=== PATIENT | female | born 1985 | race Caucasian/White ===

== ENCOUNTER → 2016-10-22 | Outpatient (CLI) | payer OTHER | END | disposition home or self-care (01) | LOC: LAB 11:46 | PROVIDERS: ATTEND Obstetrics & Gynecology Obstetrics | DX: O14.90 Unspecified pre-eclampsia, unspecified trimester (principal) ==

== ENCOUNTER → 2016-10-23 | Outpatient (CLI) | payer OTHER ==
[2016-10-23 18:59] LABS: BASOPHILS # (AUTO) 0.1 X10^3/uL (0.0-0.1); BASOPHILS % (AUTO) 0.6 % (0.2-1.0); EOSINOPHILS % (AUTO) 0.3 % (0.9-2.9); HEMATOCRIT 32.6 % (36.0-47.0); LYMPHOCYTES # (AUTO) 2.8 X10^3/uL (1.3-2.9); LYMPHOCYTES % (AUTO) 20.9 % (21.0-51.0); MEAN CORPUSCULAR HEMOGLOBIN 29.6 pg (27.0-34.0); MEAN CORPUSCULAR HGB CONC 33.8 g/dL (33.0-35.0); MEAN CORPUSCULAR VOLUME 87.5 fL (80.0-100.0); MEAN PLATELET VOLUME 9.1 fL (7.4-11.0); MONOCYTES # (AUTO) 0.8 x10^3/uL (0.3-0.8); MONOCYTES % (AUTO) 6.2 % (0.0-13.0); NEUTROPHILS # (AUTO) 9.7 x10^3/uL (2.2-4.8); PLATELET COUNT 322 X10^3/uL (150.0-450.0); RED BLOOD COUNT 3.73 X10^6/uL (3.5-5.4); RED CELL DISTRIBUTION WIDTH 12.6 % (11.6-16.5); WHITE BLOOD COUNT 13.4 X10^3/uL (3.6-10.0)
[2016-10-23 19:08] LABS: ALANINE AMINOTRANSFERASE 50 Units/L (12-78); ALBUMIN 2.7 g/dL (3.4-5.0); ALKALINE PHOSPHATASE 209 Units/L (46-116); ASPARTATE AMINO TRANSFERASE 61 Units/L (15-37); BLOOD UREA NITROGEN 6 mg/dL (7-18); CALCIUM 8.7 mg/dL (8.5-10.1); CHLORIDE 105 mmol/L (98-107); COR CA(FOR HYPOALB) 9.7 mg/dL (8.5-10.1); CREATININE 0.64 mg/dL (0.55-1.02); GLUCOSE 70 mg/dL (65-99); SODIUM 139 mmol/L (136-145); TOTAL PROTEIN 7.1 g/dL (6.4-8.2); URIC ACID 4.7 mg/dL (2.6-6.0); eGFR BLACK RACES > 60 (>60); eGFR NON BLACK RACES > 60 (>60)
[2016-10-23 19:44] LABS: CREATININE 24 HOUR,URINE 1.21 g/24 hr (0.67-1.59)
== END | disposition home or self-care (01) ==
LOC: LAB 18:13
PROVIDERS: ATTEND Obstetrics & Gynecology Obstetrics
DX: O14.90 Unspecified pre-eclampsia, unspecified trimester (principal)
CPT/HCPCS: 36415; 80053; 81050; 82570; 84157; 84550; 85025; 85610; 85730

== ENCOUNTER 2016-11-06 06:19 | Inpatient (IN) | payer OTHER ==
[2016-11-06] MEDS ORDERED: NUBAIN INJ 200 MG VIAL MULTIDOSE IVP PRN (06:39)
[2016-11-06] MEDS ORDERED: PHENERGAN INJ 25 MG IV PRN ×2 (06:39→19:48)
[2016-11-06] MEDS ORDERED: PITOCIN 10 UNITS in D5 LR 1000 ML 1,000 ML IV PRN (06:39)
[2016-11-06] MEDS ORDERED: MORPHINE SULFATE INJ 2 MG IVP PRN (06:39)
[2016-11-06] MEDS ORDERED: DILAUDID INJ IVP PRN (06:39)
[2016-11-06] MEDS ORDERED: REGLAN INJ 10 MG VIAL IVP PRN (06:39)
[2016-11-06] MEDS ORDERED: LR 1000 ML IV 1,000 ML IV ONE ×2 (06:50→10:00)
[2016-11-06] MEDS ORDERED: D5LR 1000ML W PITOCIN 10 U/L 1,000 ML IV ONE (06:50)
[2016-11-06] MEDS ORDERED: D5 1/2 NS 1000ML W PITOCIN 20 U/L 1,000 ML IV ONE (06:51)
[2016-11-06] MEDS: D5 1/2 NS 1000 ML 1,000 ML IV SCH ×2 (07:00→19:50)
[2016-11-06 07:23] LABS: BASOPHILS # (AUTO) 0.1 X10^3/uL (0.0-0.1); BASOPHILS % (AUTO) 0.5 % (0.2-1.0); EOSINOPHILS # (AUTO) 0.1 x10^3/uL (0.0-0.2); EOSINOPHILS % (AUTO) 0.8 % (0.9-2.9); HEMOGLOBIN 11.1 g/dL (12.0-16.0); LYMPHOCYTES # (AUTO) 3.5 X10^3/uL (1.3-2.9); LYMPHOCYTES % (AUTO) 24.5 % (21.0-51.0); MEAN CORPUSCULAR HEMOGLOBIN 29.5 pg (27.0-34.0); MEAN CORPUSCULAR HGB CONC 33.5 g/dL (33.0-35.0); MEAN CORPUSCULAR VOLUME 87.9 fL (80.0-100.0); MEAN PLATELET VOLUME 9.2 fL (7.4-11.0); MONOCYTES # (AUTO) 1.1 x10^3/uL (0.3-0.8); MONOCYTES % (AUTO) 7.3 % (0.0-13.0); NEUTROPHILS # (AUTO) 9.6 x10^3/uL (2.2-4.8); NEUTROPHILS % (AUTO) 66.9 % (42.0-75.0); PLATELET COUNT 313 X10^3/uL (150.0-450.0); RED BLOOD COUNT 3.75 X10^6/uL (3.5-5.4); RED CELL DISTRIBUTION WIDTH 12.7 % (11.6-16.5); WHITE BLOOD COUNT 14.4 X10^3/uL (3.6-10.0)
[2016-11-06 07:34] LABS: BILIRUBIN,URINE NEGATIVE (NEGATIVE); BLOOD/HEMOGLOBIN,URINE NEGATIVE (NEGATIVE); GLUCOSE, URINE NEGATIVE (NEGATIVE); KETONES,URINE NEGATIVE (NEGATIVE); LEUKOCYTE ESTERASE ,URINE NEGATIVE (NEGATIVE); NITRITES,URINE NEGATIVE (NEGATIVE); PH,URINE 6.5 (5.0 - 8.0); PROTEIN,URINE 1+ (NEGATIVE); UROBILINOGEN,URINE NORMAL (NORMAL)
[2016-11-06 07:35] LABS: BLOOD UREA NITROGEN 8 mg/dL (7-18); CALCIUM 8.5 mg/dL (8.5-10.1); CARBON DIOXIDE 20.7 mmol/L (21-32); CHLORIDE 107 mmol/L (98-107); CREATININE 0.88 mg/dL (0.55-1.02); GLUCOSE 89 mg/dL (65-99); SODIUM 139 mmol/L (136-145); eGFR BLACK RACES > 60 (>60); eGFR NON BLACK RACES > 60 (>60)
[2016-11-06 08:08] LABS: APPEARANCE,URINE SLIGHTLY HAZY (CLEAR); COLOR,URINE YELLOW (YELLOW)
[2016-11-06] MEDS: PITOCIN IVP ONE ×2 (08:22→19:36)
[2016-11-06] MEDS ORDERED: PHENERGAN INJ 25 MG ONE (09:05)
[2016-11-06] MEDS ORDERED: FENTANYL INJ 100 mcg EPI ONE (10:00)
[2016-11-06] MEDS ORDERED: NAROPIN EPIDURAL 0.2% 60 ML with FENTANYL INJ 100 mcg 90 MCG IVP SCH ×2 (10:00)
[2016-11-06] MEDS ORDERED: FENTANYL INJ 100 mcg ONE (10:01)
[2016-11-06] MEDS ORDERED: NAROPIN EPIDURAL 0.2% + FENTANYL 90MCG 60 ML EPI ONE ×2 (10:02→14:32)
[2016-11-06] MEDS ORDERED: MOTRIN TAB 800 MG PO PRN (19:48)
[2016-11-06] MEDS: D5 1/2 NS 1000 ML 1,000 ML with PITOCIN 20 UNITS IV SCH ×2 (19:50)
[2016-11-06] MEDS ORDERED: DERMOPLAST SPRAY TOP PRN (19:52)
[2016-11-06] MEDS ORDERED: AMBIEN PO PRN (19:52)
[2016-11-06] MEDS ORDERED: MILK OF MAGNESIA PO PRN (19:52)
[2016-11-06] MEDS ORDERED: ADACEL TDaP IM ONE (19:52)
[2016-11-06] MEDS: ZANTAC PO SCH (22:05)
[2016-11-06] MEDS: MOTRIN TAB 800 MG PO PRN (23:45)
[2016-11-07] MEDS: D5 1/2 NS 1000 ML 1,000 ML with PITOCIN 20 UNITS IV SCH ×4 (04:13→20:47)
[2016-11-07 06:10] LABS: HEMATOCRIT 29.1 % (36.0-47.0); HEMOGLOBIN 9.8 g/dL (12.0-16.0)
[2016-11-07] MEDS: PRENATAL PLUS PO SCH (10:27)
[2016-11-07] MEDS: ZANTAC PO SCH ×2 (10:28→20:48)
[2016-11-07] MEDS ORDERED: SNACK - Diabetic Appropriate PO SCH (20:00)
[2016-11-07] MEDS: MOTRIN TAB 800 MG PO PRN (20:47)
[2016-11-08] MEDS: D5 1/2 NS 1000 ML 1,000 ML with PITOCIN 20 UNITS IV SCH ×2 (06:09)
[2016-11-08 08:55] VITALS: BP 147/71
[2016-11-08] MEDS: PRENATAL PLUS PO SCH (09:24)
[2016-11-08] MEDS: ZANTAC PO SCH (09:24)
== END 2016-11-08 12:45 | disposition home or self-care (01) | DRG 775 ==
LOC: LD 06:19 → MED/SURG 20:30
PROVIDERS: ADMIT Obstetrics & Gynecology Obstetrics; ATTEND Obstetrics & Gynecology Obstetrics
PROC: 10E0XZZ Delivery of Products of Conception, External Approach (ICD-10-PCS; principal; 2016-11-06)
PROC: 10907ZC Drainage of Amniotic Fluid, Therapeutic from Products of Conception, Via Natural or Artificial Opening (ICD-10-PCS; 2016-11-06)
PROC: 3E033VJ Introduction of Other Hormone into Peripheral Vein, Percutaneous Approach (ICD-10-PCS; 2016-11-06)
PROC: 00HU33Z Insertion of Infusion Device into Spinal Canal, Percutaneous Approach (ICD-10-PCS; 2016-11-06)
PROC: 0KQM0ZZ Repair Perineum Muscle, Open Approach (ICD-10-PCS; 2016-11-06)
DX: O71.82 Other specified trauma to perineum and vulva (principal); Z37.0 Single live birth; Z3A.39 39 weeks gestation of pregnancy
CPT/HCPCS: 09167; 36415; 59409; 80048; 81003; 85014; 85018; 85025; 86592; 86850; 86900; 86901; A4216; A4222; S0197; J2550; J2590; J3010; J7042; J7120

== ENCOUNTER 2023-04-23 06:13 | Inpatient (IN) ==
[2023-04-23] MEDS ORDERED: ANCEF VIAL 1 GRAM IVP ONE ×2 (06:40→07:20)
[2023-04-23] MEDS ORDERED: LR 1,000 ML IV 1,000 ML IV ONE ×3 (06:43→07:00)
[2023-04-23] MEDS ORDERED: NS 100 ML IV 100 ML ONE (06:49)
[2023-04-23] MEDS ORDERED: ANCEF VIAL 1 GRAM ONE (06:49)
[2023-04-23] MEDS ORDERED: D5 1/2 NS 1,000 mL + PITOCIN 20 UNITS/L IV 20 UNITS/1,000 ML BAG IV ONE (07:00)
[2023-04-23] MEDS ORDERED: PITOCIN ONE (07:02)
[2023-04-23] MEDS ORDERED: MARCAINE SPINAL ONE (07:02)
[2023-04-23] MEDS ORDERED: DILAUDID INJ ONE (07:02)
[2023-04-23] MEDS ORDERED: ZOFRAN INJ 4 MG VIAL ONE (07:08)
[2023-04-23] MEDS ORDERED: PEPCID 20 MG VIAL ONE (07:08)
[2023-04-23] MEDS ORDERED: REGLAN INJ 10 MG VIAL ONE (07:08)
[2023-04-23] MEDS ORDERED: DIPRIVAN VIAL 20 ML ONE (07:16)
[2023-04-23 07:26] LABS: BILIRUBIN,URINE NEGATIVE (NEGATIVE); BLOOD/HEMOGLOBIN,URINE 1+ (NEGATIVE); GLUCOSE, URINE NEGATIVE (NEGATIVE); KETONES,URINE NEGATIVE (NEGATIVE); LEUKOCYTE ESTERASE ,URINE 3+ (NEGATIVE); NITRITES,URINE NEGATIVE (NEGATIVE); PROTEIN,URINE 1+ (NEGATIVE); UROBILINOGEN,URINE NORMAL (NORMAL)
[2023-04-23 07:29] LABS: BASOPHILS # (AUTO) 0.1 X10^3/uL (0.0-0.1); BASOPHILS % (AUTO) 0.7 % (0.2-1.0); EOSINOPHILS # (AUTO) 0.2 x10^3/uL (0.0-0.2); EOSINOPHILS % (AUTO) 1.3 % (0.9-2.9); HEMATOCRIT 32.7 % (36.0-47.0); HEMOGLOBIN 10.9 g/dL (12.0-16.0); LYMPHOCYTES # (AUTO) 2.9 X10^3/uL (1.3-2.9); LYMPHOCYTES % (AUTO) 22.4 % (21.0-51.0); MEAN CORPUSCULAR HEMOGLOBIN 29.6 pg (27.0-34.0); MEAN CORPUSCULAR HGB CONC 33.2 g/dL (33.0-35.0); MEAN CORPUSCULAR VOLUME 89.2 fL (80.0-100.0); MEAN PLATELET VOLUME 8.3 fL (7.4-11.0); MONOCYTES # (AUTO) 0.8 x10^3/uL (0.3-0.8); MONOCYTES % (AUTO) 6.4 % (0.0-13.0); NEUTROPHILS # (AUTO) 8.9 x10^3/uL (2.2-4.8); NEUTROPHILS % (AUTO) 69.2 % (42.0-75.0); PLATELET COUNT 327 X10^3/uL (150.0-450.0); RED BLOOD COUNT 3.67 X10^6/uL (3.5-5.4); RED CELL DISTRIBUTION WIDTH 12.9 % (11.6-16.5); WHITE BLOOD COUNT 12.8 X10^3/uL (3.6-10.0)
[2023-04-23 07:38] LABS: APPEARANCE,URINE HAZY (CLEAR); COLOR,URINE YELLOW (YELLOW)
[2023-04-23 07:39] LABS: BACTERIA,URINE 1+ /HPF (NEGATIVE); RBC,URINE NONE SEEN /HPF (0-3); SQUAMOUS EPITHELIAL CELL,UR NUMEROUS /HPF (NEGATIVE)
[2023-04-23 07:42] LABS: ALANINE AMINOTRANSFERASE 14 Units/L (12-78); ALBUMIN 2.3 g/dL (3.4-5.0); ALKALINE PHOSPHATASE 192 Units/L (46-116); ASPARTATE AMINO TRANSFERASE 20 Units/L (15-37); BLOOD UREA NITROGEN 7 mg/dL (7-18); CALCIUM 7.7 mg/dL (8.5-10.1); CARBON DIOXIDE 19.9 mmol/L (21-32); CHLORIDE 104 mmol/L (98-107); COR CA(FOR HYPOALB) 9.1 mg/dL (8.5-10.1); CREATININE 0.62 mg/dL (0.55-1.02); GLUCOSE 80 mg/dL (65-99); SODIUM 134 mmol/L (136-145); TOTAL PROTEIN 6.5 g/dL (6.4-8.2); eGFR NON BLACK RACES > 60 (>60)
[2023-04-23] MEDS ORDERED: VERSED ONE (08:04)
[2023-04-23 08:24] LABS: RAPID PLASMA REAGIN NONREACTIVE (NONREACTIVE)
[2023-04-23] MEDS ORDERED: TORADOL 30 MG VIAL ONE (08:49)
[2023-04-23] MEDS ORDERED: KETAMINE 50 MG/5 ML-NACL SYRNG ONE (08:51)
[2023-04-23] MEDS ORDERED: REGLAN INJ 10 MG VIAL IVP PRN ×2 (09:18→09:45)
[2023-04-23] MEDS ORDERED: BENADRYL INJ 50 MG VIAL IVP PRN ×2 (09:18→09:45)
[2023-04-23] MEDS ORDERED: ZOFRAN INJ 4 MG VIAL IVP PRN ×2 (09:18→09:45)
[2023-04-23] MEDS ORDERED: BARHEMSYS INJ IVP PRN (09:18)
[2023-04-23] MEDS ORDERED: NARCAN INJ IVP PRN ×2 (09:19→09:45)
[2023-04-23] MEDS ORDERED: MYLICON TAB 80 MG CHEW PO PRN (09:45)
[2023-04-23] MEDS ORDERED: PERCOCET TAB 5/325 MG PO PRN (09:45)
[2023-04-23] MEDS ORDERED: TORADOL 30 MG VIAL IVP PRN (09:45)
[2023-04-23] MEDS ORDERED: D5 1/2 NS 1,000 ML 1,000 ML with PITOCIN 20 UNITS IV SCH ×2 (10:00)
[2023-04-23] MEDS: MOTRIN TAB 800 MG PO PRN (23:28)
[2023-04-24 05:25] LABS: HEMATOCRIT 28.6 % (36.0-47.0); HEMOGLOBIN 9.5 g/dL (12.0-16.0)
[2023-04-24] MEDS: PRENATAL PLUS PO SCH (08:19)
[2023-04-24] MEDS: NS 100 ML IV 100 ML with VENOFER 400 MG IV NR ×4 (10:33→10:46)
[2023-04-24] MEDS: PERCOCET TAB 5/325 MG PO PRN ×2 (10:38→17:19)
[2023-04-25] MEDS: PERCOCET TAB 5/325 MG PO PRN (00:53)
[2023-04-25 05:29] VITALS: RESP 18
[2023-04-25] MEDS: PRENATAL PLUS PO SCH (09:36)
[2023-04-25] MEDS: MOTRIN TAB 800 MG PO PRN (09:38)
[2023-04-25 10:12] VITALS: BP 144/81; PULSE 72; TEMP 97.7; O2SAT 96
[2023-04-25] MEDS: DULCOLAX SUPPOSITORY 10 MG RECTAL ONE ×2 (10:49→10:54)
== END 2023-04-25 11:20 | disposition home or self-care (01) | DRG 785 ==
LOC: LD 06:13 → MED/SURG 09:45
PROVIDERS: ADMIT Obstetrics & Gynecology Obstetrics; ATTEND Obstetrics & Gynecology Obstetrics
DX: O34.211 Maternal care for low transverse scar from previous cesarean delivery; N85.8 Other specified noninflammatory disorders of uterus; Z3A.39 39 weeks gestation of pregnancy; Z37.0 Single live birth; Z30.2 Encounter for sterilization